=== PATIENT | female | born 1935 | race Caucasian/White ===

== ENCOUNTER 2016-12-22 14:16 | Emergency (ER) | payer MEDICARE, OTHER ==
[~2016-12-22 14:16] MED LIST: ADULT ASPIRIN81 MG PO; AGGRENOX1 CAP PO; ASPIR 8181 MG; ASPIR 8181 MG PO; CELEBREX200 MG PO; EFFEXOR75 MG; EFFEXOR75 MG PO; ENTERIC COATED325 M PO; IRON; IRON1 TA1 PO; MACROBID100 MG/CAP PO; NORVASC5 MG PO; NUCYNTA50 MG PO; OMEPRAZOLE20 M3 PO; PLAVIX75 M1 PO; TYLENOL650 MG PO; VENLAFAXINE HCL75 M4 PO; VOLTAREN PO; VOLTAREN50 MG; ZOCOR20 M1 PO; ZOCOR20 MG; [UNRECOGNIZED DRUG - OTHER]; [UNRECOGNIZED DRUG - OTHER] PO
[2016-12-22] MEDS ORDERED: PRINIVIL10 M1 PO (14:33)
== END 2016-12-22 15:59 ==
LOC: EDMED 14:16
PROC: 2W3DX1Z Immobilization of Left Lower Arm using Splint (ICD-10-PCS; principal; 2016-12-22)
DX: S52.502A Unspecified fracture of the lower end of left radius, initial encounter for closed fracture (principal); W18.39XA Other fall on same level, initial encounter; Y93.89 Activity, other specified; Y92.89 Other specified places as the place of occurrence of the external cause; Y99.8 Other external cause status